=== PATIENT | female | born 1975 | race Caucasian/White ===

== ENCOUNTER 2024-09-29 14:14 | Outpatient (CLI) | payer BC, SELFPAY ==
--- NOTE | ~2024-09-29 | CT_ITS ---
CLINICAL INDICATION: Preoperative evaluation for ventral hernia repair COMPARISON: None. TECHNIQUE: Multiple contiguous axial images of the abdomen and pelvis were performed without the admi nistration of intravenous contrast The dose-length product (DLP) was 309.94 mGy-cm. Automated exposure control and iterative reconstruction technique were employed. FINDINGS/OBSERVATIONS: Visualized lower thorax: The bilateral lung bases are clear. The heart is of normal size, without pericardial effusion. Liver: A 17 mm well-circumscribed rounded focus of fluid attenuation is identified within segment 3 o f the liver, most consistent with a simple cyst. The remainder of the liver demonstrates otherwise homogeneous attenuation and is not enlarged. Gallbladder and biliary system: The gallbladder is only minimally distended, and otherwise unremarkable. Pancreas: Limited evaluation of the pancreas secondary to the lack of intravenous contrast. Spleen: The spleen demonstrates homogeneous attenuation and is not enlarged. Kidneys: The bilateral kidneys are unremarkable, without hydronephrosis or renal calculi. Adrenal glands: Unremarkable. Gastrointestinal tract: Trace fecal stasis within the colon. Appendix: The air-filled appendix is of normal caliber (axial series, images 95 through 118). Vasculature: Unremarkable. Lymph nodes: Limited evaluation without intravenous contrast. Pelvic structures: The bladder is decompressed, demonstrating markedly thickened gary, likely secondary to underdistent ion. The uterus is retroverted and retroflexed, and otherwise unremarkable. Body wall and musculoskeletal: Approximately 4 cm above the umbilicus is an 8 mm fascial defect and a fat-containing supraumbilical hernia. A small, multilobulated umbilical hernia is also present. No inguinal hernias are present. No significant degenerative disease within the lower thoracic or lumbosacral spine. IMPRESSION: Umbilical and supraumbilical hernia, as detailed above. Reviewed, dictated and finalized at location A.
--- OUTSIDE RECORDS SUMMARY | 2024-09-29 15:40 | XMS_ITS | Clinical Summary ---
Author Organization [facility] Address [address] [place] [address] Care Team Providers Care Siding Coreboard Inspector Name Role Phone Jose Russell MD Primary Care Provider [phone]- [phone] Allergies No known active allergies Medications montelukast (SINGULAIR) 10 mg tablet Take 1 tablet (10 mg total) by mouth daily 03/07/2024 Active Active Problems No known active problems Encounters Date Type Department Care Team Description 07/13/2024 8:45 AM GALLEY BOY Office Visit [facility] Orthopedics and Sports Medicine [address] [place] [phone] Chinyere Yoon PA Closed displaced fracture of fifth metatarsal bone of right foot with routine healing, subsequent encounter (Primary Dx) 07/13/2024 8:24 AM GALLEY BOY - 07/13/2024 11:59 PM GALLEY BOY Hospital Encounter [facility] [address] [place] [id number] Closed displaced fracture of fifth metatarsal bone of right foot with delayed healing, subsequent encounter Discharge Disposition: Discharge to home or self care from Last 3 Months Immunizations Immunization Administration Dates Next Due Flucelvax Influenza Quad 05/08/2019 Influenza, Trivalent, IM (MDV) 04/14/2015 Social History Tobacco Use Types Packs/Day Years Used Date Smoking Tobacco: Never Tobacco Cessation:Counseling Given: Not Answered Comments Unknown Sex and Gender Information Value Date Recorded Sex Assigned at Not on file Legal Sex Female 8:03 AM GALLEY BOY Gender Identity Not on file Sexual Orientation Not on file Obstetrics History Last Filed Vital Signs Vital Sign Reading Time Taken Comments Blood Pressure - - Pulse - - Temperature - - Respiratory Rate - - Oxygen Saturation - - Inhaled Oxygen Concentration - - Weight 68 kg (150 lb) 07/13/2024 8:32 AM GALLEY BOY Height 170.2 cm (5' 7 ) 07/13/2024 8:32 AM GALLEY BOY Body Mass Index 23.49 07/13/2024 8:32 AM GALLEY BOY Plan of Treatment Health Maintenance Due Date Last Done Comments Cervical Cancer Screening 1977 Colon Cancer Screening-Colonoscopy 1977 Depression Screening 1977 Hepatitis C Screening 1977 DTaP/Tdap/Td Vaccine (1 - Tdap) 1988 Hepatitis B Screening 09/11/1995 Regular Well Visit/Exam 18-64 09/11/1995 Covid-19 Vaccine ( season) 2024 08/05/2020, 07/15/2020 Influenza Vaccine (#1) 2024 05/08/2019, 2014 Breast Cancer Screening-Mammogram 10/22/2024 10/23/2023, 09/17/2022, 05/22/2021, Additional history exists HPV Vaccines Aged Out No longer eligi ble based on patient's age to complete this topic Pneumococcal vaccine <65 Aged Out No longer eligible based on patient's age to complete this topic Procedures Procedure Name Priority Date/Time Associated Diagnosis Comments XR FOOT RIGHT 3 OR MORE VIEWS Schedule Routine, Read Routine (OP Routine) 07/13/2024 8:33 AM GALLEY BOY Closed displaced fracture of fifth metatarsal bone of right foot with delayed healing, subsequent encounter SCREENING MAMMOGRAM BILATERAL W DIMITRIOS Schedule Routine, Read Routine (OP Routine) 10/23/2023 12:39 PM CDT Screening mammogram, encounter for from Last 3 Months or Most Recently Relevant to Health Maintenance Results * XR Foot Right 3 or More Views (07/13/2024 8:33 AM GALLEY BOY) Anatomical Region Laterality Modality Lower Extremities, Foot Right Computed Radiography 07/13/2024 9:57 AM GALLEY BOY Narrative 07/13/2024 9:59 AM GALLEY BOY EXAM DESCRIPTION: XR FOOT RIGHT 3 OR MORE VIEWS REASON FOR STUDY: FX Lateral foot pain since injury/fx 01-14-24 TECHNIQUE: 3 radiographic view(s) of the right foot . COMPARISON: 04/06/2024 FINDINGS: There is mild osteopenia. There is redemonstration of the right 5th metatarsal with grossly stable alignment with interval complete healing changes. No new fractures or dislocations are identified. There are mild degenerative changes of the tarsal tarsal, tarsometatarsal, metatarsophalangeal, and interphalangeal joints. The visualized soft tissues are acutely grossly unremarkable. IMPRESSION: Grossly stable alignment of previously visualized right 5th metatarsal fracture with interval complete healing changes. THIS IS AN ELECTRONICALLY VERIFIED FINAL REPORT 07/13/2024 9:59 AM - Electronically signed by Viky Land D.O. PS T: Report ID: [id number] Reading Location: [id number] Procedure Note Viky Land, - 07/13/2024 EXAM DESCRIPTION: XR FOOT RIGHT 3 OR MORE VIEWS REASON FOR STUDY: FX Lateral foot pain since injury/fx 01-14-24 TECHNIQUE: 3 radiographic view(s) of the right foot . COMPARISON: 04/06/2024 FINDINGS: There is mild osteopenia. There is redemonstration of the [id number] metatarsal with grossly stable alignment with interval complete healing changes. No new fractures or dislocations are identified. There are mild degenerative changes of the tarsal tarsal, tarsometatarsal, metatarsophalangeal, and interphalangeal joints. The visualized softtissues are acutely grossly unremarkable. IMPRESSION: Grossly stable alignment of previously visualized right 5th metatarsal fracture with interval complete healing changes. THIS IS AN ELECTRONICALLY VERIFIED FINAL REPORT 07/13/2024 9:59 AM - Electronically signed by Viky Land D.O. PS T: Report ID: [id number] Reading Location: [id number] [facility] XR PROCEDURES Final Re sult * Screening Mammogram Bilateral W Dimitrios (10/23/2023 12:39 PM CDT) Anatomical Region Laterality Modality Breast Bilateral Mammography Narrative 10/24/2023 10:42 AM CDT Mammogram Technique: Bilateral Digital Breast Tomosynthesis, Bilateral C-view 2D Screening mammogram. Views obtained: bilateral craniocaudal and bilateral mediolateral oblique. Computer Aided Detection was performed. Mammogram Findings: The present examination has been compared to prior imaging studies performed at [facility] on 03/24/2020, 05/22/2021 and 09/17/2022. The breasts are heterogeneously dense, which may obscure small masses. There is no suspicious abnormality in either breast. Impression: There is no mammographic evidence of malignancy. Annual screening mammography is recommended. If supplemental screening is desired, breast MRI would be recommended in this patient with heterogeneously dense breasts. OVERALL FINAL ASSESSMENT: BI-RADS CATEGORY 1: Negative. Procedure Note Mary Robb MD - 10/24/2023 Mammogram Technique: Bilateral Digital Breast Tomosynthesis, Bilateral C-view 2D Screening mammogram. Views obtained: bilateral craniocaudal and bilateral mediolateral oblique. Computer Aided Detection was performed. Mammogram Findings: The present examination has been compared to prior imaging studies performed at [facility] on 03/24/2020, 05/22/2021 and 09/17/2022. The breasts are heterogeneously dense, which may obscure small masses. There is no suspicious abnormality in either breast. Impression: There is no mammographic evidence of malignancy. Annual screening mammography is recommended. If supplemental screeningis desired, breast MRI would be recommended in this patient with heterogeneously dense breasts. OVERALL FINAL ASSESSMENT: BI-RADS CATEGORY 1: Negative. us Self Screening Mammogram IMG MAMMO PROCEDURES Fi nal Result from Last 3 Months or Most Recently Relevant to Health Maintenance Insurance ANTHEM ACCESS CHOICE ANTHEM ACCESS BLUE ACCESS [place] [facility] Care Teams Siding Coreboard Inspector Relationship Specialty Start Date End Date Jose Russell MD [address] [facility] [address] [place], [place] [id number] PCP - General 10/25/16
--- OUTSIDE RECORDS SUMMARY | 2024-09-29 15:40 | XMS_ITS | Clinical Summary ---
Author Organization [facility] Address [address] [place] [address] Care Team Providers Care Head Start Assistant Teacher Name Role Phone Unavailable Primary Care Provider Unavailabl e Source Comments [facility],non-owned Affiliates and Associated Physician Practices is amultiple site organization consisting of ambulatory clinics and hospital sitesin [place], [place], [place] and [place]. This disclosure is being madepursuant to the Care Everywhere program and may not contain all information available regarding this patient. Last updated 18.[facility] Immunizations Name Administration Dates Next Due Covid Pfizer primary monoval ent 12+ yr 0.3mL Purple cap 08/05/2020,07/15/2020 Social History Tobacco Use Types Packs/Day Years Used Date Smoking Tobacco: Never Assessed Sex and Gender Information Value Date Recorded Sex Assigned at Not on file Gender Identity Not on file Sexual Orientation Not on file Plan of Treatment Health Maintenance Due Date Last Done Comments COLOGUARD (AGES 45-75) - COL ON CA SCREENING 1977 COLON MONITORING 1977 COLONOSCOPY - COLON CA SCREENING 1977 CT COLONOGRAPHY - COLON CA SCREENING 1977 Colorectal Cancer Screening 1977 FIT - COLON CA SCREENING 1977 FLEX SIG - COLON CA SCREENING 1977 LIPID TESTING 1977 PAP SMEAR 1977 HIV SCREENING 1992 HEPATITIS C SCREENING 09/06/1995 DTAP/TDAP/TD VACCINES (1 - Tdap) 1996 HEPATITIS B VACCINE (1 of 3 - 19+ 3-dose series) 1996 MAMMOGRAM 03/24/2022 03/24/2020 COVID-19 VACCINE (2023-2 5 season) 2024 08/05/2020, 07/15/2020 INFLUENZA VACCINE (#1) 2024 DEPRESSION SCREENING 07/01/2024 ZOSTER VACCINE (1 of 2) 09/11/2027 HIB VACCINE Aged Out No longer eligi ble based on patient's age to complete this topic HPV VACCINE Aged Out No longer eligi ble based on patient's age to complete this topic MENINGOCOCCAL (Group B) VACCINE SHARED DECISION-MAKING Aged Out No longer eligible based on patient's age to complete this topic MENINGOCOCCAL GROUPS A/C/Y/W VACCINE Aged Out No longer eligible b ased on patient's age to complete this topic PNEUMOCOCCAL VACCINE Aged Out No long er eligible based on patient's age to complete this topic
--- OUTSIDE RECORDS SUMMARY | 2024-09-29 15:40 | XMS_ITS | Referral Summary ---
Author Organization [facility] Address [address] [place] [address] Care Team Providers Care Security System Engineer Name Role Phone Jose Russell MD Primary Care Provider +1- [phone] Encounters Date Type Department Care Team Description 07/13/2024 8:24 AM BRADLEY LINEBACKER CREWMEMBER - 07/13/2024 11:59 PM BRADLEY LINEBACKER CREWMEMBER Hospital Encounter [facility] Diag Imaging [address] [place] [phone] Closed displaced fracture of fifth metatarsal bone of right foot with delayed healing, subsequent encounter Discharge Disposition: Discharge to home or self care 07/13/2024 8:45 AM BRADLEY LINEBACKER CREWMEMBER Office Visit [facility] Orthopedics and Sports Medicine [address] [place] [address] [place] [phone] Chinyere Yoon PA Closed displaced fracture of fifth metatarsal bone of right foot with routine healing, subsequent encounter (Primary Dx) from Last 3 Months Allergies No known active allergies Medications montelukast (SINGULAIR) 10 mg tablet Take 1 tablet (10 mg total) by mouth daily 03/07/2024 Active Active Problems No known active problems Immunizations Immunization Administration Dates Next Due Flucelvax Influenza Quad 05/08/2019 Influenza, Trivalent, IM (MDV) 04/14/2015 Social History Tobacco Use Types Packs/Day Years Used Date Smoking Tobacco: Never Tobacco Cessation:Counseling Given: Not Answered Comments Unknown Sex and Gender Information Value Date Recorded Sex Assigned at Not on file Legal Sex Female 8:03 AM BRADLEY LINEBACKER CREWMEMBER Gender Identity Not on file Sexual Orientation Not on file Last Filed Vital Signs Vital Sign Reading Time Taken Comments Blood Pressure - - Pulse - - Temperature - - Respiratory Rate - - Oxygen Saturation - - Inhaled Oxygen Concentration - - Weight 68 kg (150 lb) 07/13/2024 8:32 AM BRADLEY LINEBACKER CREWMEMBER Height 170.2 cm (5' 7 ) 07/13/2024 8:32 AM BRADLEY LINEBACKER CREWMEMBER Body Mass Index 23.49 07/13/2024 8:32 AM BRADLEY LINEBACKER CREWMEMBER Plan of Treatment Not on file Procedures Procedure Name Priority Date/Time Associated Diagnosis Comments XR FOOT RIGHT 3 OR MORE VIEWS Schedule Routine, Read Routine (OP Routine) 07/13/2024 8:33 AM BRADLEY LINEBACKER CREWMEMBER Closed displaced fracture of fifth metatarsal bone of right foot with delayed healing, subsequent encounter SCREENING MAMMOGRAM BILATERAL W DIMITRIOS Schedule Routine, Read Routine (OP Routine) 10/23/2023 12:39 PM CDT Screening mammogram, encounter for from Last 3 Months or Most Recently Relevant to Health Maintenance Results * XR Foot Right 3 or More Views (07/13/2024 8:33 AM BRADLEY LINEBACKER CREWMEMBER) Anatomical Region Laterality Modality Lower Extremities, Foot Right Computed Radiography 07/13/2024 9:57 AM BRADLEY LINEBACKER CREWMEMBER Narrative 07/13/2024 9:59 AM BRADLEY LINEBACKER CREWMEMBER EXAM DESCRIPTION: XR FOOT RIGHT 3 OR [...] Viky Land D.O. PS T: Report ID: [id number] Reading Location: [id number] Procedure Note Viky Land, DO - 07/13/2024 EXAM DESCRIPTION: XR FOOT RIGHT 3 OR MORE VIEWS REASON FOR STUDY: FX Lateral foot pain since injury/fx 01-14-24 TECHNIQUE: 3 radiographic view(s) of the right foot . COMPARISON: 04/06/2024 FINDINGS: There is mild osteopenia. There is redemonstration of the [id number] metatarsal with grossly stable alignment with interval [...] Viky Land D.O. PS T: Report ID: [id number] Reading Location: [id number] [facility] XR PROCEDURES Final Re [...] compared to prior imaging studies performed at [facility] on 03/24/2020, 05/22/2021 and 09/17/2022. The [...] compared to prior imaging studies performed at [facility] on 03/24/2020, 05/22/2021 and 09/17/2022. The [...] Most Recently Relevant to Health Maintenance Insurance [employer] CHOICE [employer] ACCESS BLUE ACCESS [place] Care Teams Security System Engineer Relationship Specialty Start Date End Date Jose Russell MD [address] [facility] [facility] [address] [place] [address] PCP - General 10/25/16
--- OUTSIDE RECORDS SUMMARY | 2024-09-29 15:40 | XMS_ITS | Data Portability ---
Author Organization [facility], [facility]) Address [address] [place] [address] Care Team Providers Care Pilot Steam Yacht Name Role Phone LUCILA MAHAJAN Primary Care Provider [phone] Assessment Encounter Date Assessment Date Assessment LastModified by Organization Details LastModified Time 08/21/2021 08/21/2021 45 y/o with chronic venous insufficiency and CEAP grade 3 on the right and 3 on the left. VCSS score is 10. I am concerned that the symptoms may progress over time. Patients symptoms persist despite a trial of properly fitted gradient compression stockings f or10 y ears. Patient has also tried mild exercise, avoidance of prolonged immobility and periodic elevation of legs f or10 y ears. H owever, the symptoms still persist. Given the symptoms, I recommend lower extremity venous ultrasound I will discuss further treatment plans upon reviewing her ultrasound results. I spent a total of 45 minutes with the patient. The time was spent reviewing the chart discussing with patient and/or family and forming a treatment plan [email or web address] Not available 08/21/2021 13:10:00 Plan of Treatment Reminders Order Date Submit Date Provider Last Modified By Organization Details Last Modified Time Details Appointments None record ed. Lab None record ed. Referral None record ed. Procedures None record ed. Surgeries None record ed. Imaging None record ed. Medication Orders None record ed. Patient TargetsNo targets recorded. Patient InstructionsNo instructions recorded. Reason for Referral None Reported. Problems No Known Problems Medical Equipment None Reported. Allergies No known drug allergies Medications Not known to be on any medication Vitals None Recorded Social History Question Answer Notes LastModified by Organizat ion Details LastModified Time What Was The Date Of Your Most Recent Tobacco Screening? 08/21/2021 [id number] Information not available 08/21/2021 Sex: Unknown Functional Status None recorded. Mental Status None recorded. Family History Nothing Reported. Medical History Condition Response Coronary Artery Disease N COPD N Clotting Disorder N Pacemaker N Genitourinary Disease N Gastrointestinal Disease N Deep Vein Thrombosis N Anxiety Disorder N Varicose Veins Y Cancer N Stroke N Neurologic Disorder N Kidney Disease N Anemia N Ulcers N Diabetes N Anticoagulation therapy N Bleeding Disorder N Hyperlipidemia N Asthma N Hepatitis N Heart Disease N Pulmonary Embolism N Hypertension N Gynecological HistoryNo gynecological history recorded. Obstetrics History GPAL:G 0 P 0 0 0 0 Past Encounters Encounter ID Performer Location Encounter Start Date Encounter Closed Date Diagnosis/Indication Diagnosis SNOMED-CT Code Diagnosis ICD10 Code Diagnosis Note [id number] [facility] [address] [facility] [facility] [address],[facility] [address] ( [place] [address] 08/21/2021 11:54:33 08/22/2021 09:02:10 Varicose veins of lower extremity 75661252 I83.893 Primary ve nous insufficiency of leg 311911079 I87.2 Health Concerns Section Related Observation LastModified by Organization Detai ls LastModified Time None Recorded Concern Status LastModified by Organization Details LastModified Time None Recorded Advance Directives Directive None Recorded Payers Encounter Date Sequence Insurance Name Policy Number Policy Gage Covered Member ID Gage Member ID Guarantor Name 08/21/2021 1 [place] [id number] Malik Monreal [id number] Ginny Monreal Notes Date Note Type Note Provider Name and Address Organization Details Recorded Time 2 text/html Varicose Vein or Venous insufficiencyReported bypatient.Location:[facility]; only has symptoms on the left leg, but she has a prior history of bulging veins on the right (treated with sclero) Quality:aching;burning;thr obbing; worsening; legs do not swell equally; left worse than right Associated Symptoms:swelling;redness; itching;heaviness;throbbin g; She has tenderness over the bulging vessels in the right leg (from her thigh to her calf) Severity:moderate;constant Onset:gradual onset; 15 years Context:previous ; compression stockings (for how long?) 9 years Alleviating Factors:nothing gives relief; rest Aggravating Factors:weight bearing; previous childbirth; edema; prolonged standing Previous Surgery:sclerotherapy, [id number]; She has been getting sclerotheraphy for over 15 years, but the bulging vessels in her leg have returned and worsened. They are tender and her and painful, especially while weight bearing. Prior Imaging:none As related to {{his her*}} venous disease, patient reports {{burning aching swelling itching cramping burning, aching, itching, cramping#}} {{and burning and aching and swelling* and itching and cramping}} { {during activity after prolonged standing during activity and prolonged standing*}}.Patient {{endorses* denies}} prior use of compression stockings.{{Patients symptoms persist despite a trial of properly fitted gradient compression stockings*}}for {{1 2 3 4 5 6 7 8 9* 10 11 12}} { {months weeks years* month week year}}{{Patient has also tried mild exercise, avoidance of prolonged immobility and periodic elevation of legs*}} f or{{1 2 3 4 5 6 7 8 9* 10 11}} { {month months week weeks y ear years* month months we ek weeks year years*}}. { {However, the symptoms still persist.*}} {{Analgesic medication has been tried, but the symptoms persist and are lifestyle limiting*}}Patients work requires {{prolonged standing prolonged sitting constant activity*}} which has to be modified because of persistent {{pain swelling discomfort pain and discomfort#}} while {{standing sitting in motion performing various work activities*}} [facility] 08/21/2021 13:10:58 OBGyn Episode No OBEpisode recorded.
== END 2024-09-29 14:15 | disposition home or self-care (01) ==
PROVIDERS: PCP Internal Medicine; Visit Provider Surgery
DX: K43.6 Other and unspecified ventral hernia with obstruction, without gangrene (principal); R10.11 Right upper quadrant pain; K42.9 Umbilical hernia without obstruction or gangrene
CPT/HCPCS: 74176

== ENCOUNTER 2024-10-07 07:43 | Outpatient (CLI) | payer BC, SELFPAY ==
--- NOTE | ~2024-10-07 | US_ITS ---
US abdomen limited INDICATION: Right upper quadrant pain PROCEDURE: Realtime right upper abdominal ultrasound. COMPARISON: No prior studies for comparison. FINDINGS: The pancreas is normal without focal mass or pancreatic ductal dilation. There is a septat ed 2.2 cm cyst of the left hepatic lobe. There is normal directional flow in the portal vein. The gallbladder is normal without stones, gallbladder wall thickening or pericholecystic fluid. Comm on bile duct measures 9 mm. No sonographic Sheets's sign. IMPRESSION: 1: Mildly dilated common bile duct measuring 9 mm. No obstructing stone or mass identified. Consider correlation with MRCP. 2: Septated 2.2 cm liver cyst in the left hepatic lobe. Reviewed, dictated and finalized at location A.
== END 2024-10-07 07:44 | disposition home or self-care (01) ==
LOC: MICIMG 07:44
PROVIDERS: PCP Internal Medicine; Visit Provider Surgery
DX: R10.11 Right upper quadrant pain (principal); K76.89 Other specified diseases of liver
CPT/HCPCS: 76705

== ENCOUNTER 2024-10-13 01:38 | Day surgery (SDC) | payer BC, SELFPAY ==
[2024-10-02 15:47] VITALS: BMI 22.7
--- OUTSIDE RECORDS SUMMARY | 2024-10-13 01:40 | XMS_ITS | Referral Summary ---
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 Gender Identity Not on file Sexual Orientation Not on file Last Filed Vital Signs Vital Sign Reading Time Taken Comments Blood Pressure - - Pulse - - Temperature - - Respiratory Rate - - Oxygen Saturation - - Inhaled Oxygen Concentration - - Weight 68 kg (150 lb) 07/13/2024 8:32 AM FINISH SPECIALIST Height 170.2 cm (5' 7 ) 07/13/2024 8:32 AM FINISH SPECIALIST Body Mass Index 23.49 07/13/2024 8:32 AM FINISH SPECIALIST Plan of Treatment Not on file Procedures Procedure Name Priority Date/Time Associated Diagnosis Comments SCREENING MAMMOGRAM BILATERAL W DIMITRIOS Schedule Routine, Read Routine (OP Routine) 10/23/2023 12:39 PM CDT Screening mammogram, encounter for from Last 3 Months or Most Recently Relevant to Health Maintenance Results * Screening Mammogram Bilateral W Dimitrios (10/23/2023 12:39 PM CDT) Anatomical Region Laterality Modality Breast Bilateral Mammography Narrative 10/24/2023 10:42 AM CDT Mammogram Technique: Bilateral Digital Breast Tomosynthesis, Bilateral C-view 2D Screening mammogram. Views obtained: bilateral craniocaudal and bilateral mediolateral oblique. Computer Aided Detection was performed. Mammogram Findings: The present examination has been compared to prior imaging studies performed at [facility] on 03/24/2020, 05/22/2021 and 09/17/2022. The [...] compared to prior imaging studies performed at [facility] on 03/24/2020, 05/22/2021 and 09/17/2022. The [...] ACCESS BLUE ACCESS [place] BL[place] ACC[place] [facility] Care Teams Credit Risk Review Officer Relationship Specialty Start Date End Date Jose Russell MD [address] [facility] [address] [place] [address] PCP - General 10/25/16
--- OUTSIDE RECORDS SUMMARY | 2024-10-13 01:40 | XMS_ITS | Clinical Summary ---
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 Gender Identity Not on file Sexual Orientation Not on file Obstetrics History Last Filed Vital Signs Vital Sign Reading Time Taken Comments Blood Pressure - - Pulse - - Temperature - - Respiratory Rate - - Oxygen Saturation - - Inhaled Oxygen Concentration - - Weight 68 kg (150 lb) 07/13/2024 8:32 AM TRAFFIC OR SYSTEM DISPATCHER Height 170.2 cm (5' 7 ) 07/13/2024 8:32 AM TRAFFIC OR SYSTEM DISPATCHER Body Mass Index 23.49 07/13/2024 8:32 AM TRAFFIC OR SYSTEM DISPATCHER Plan of Treatment Health Maintenance Due Date Last Done Comments Cervical Cancer Screening 1977 Colon Cancer Screening-Colonoscopy 1977 Depression Screening 1977 Hepatitis C Screening 1977 DTaP/Tdap/Td Vaccine (1 - Tdap) 1988 Hepatitis B Screening 09/11/1995 Regular Well Visit/Exam 18-64 09/11/1995 Covid-19 Vaccine ( season) 2024 08/05/2020, 07/15/2020 Breast Cancer Screening-Mammogram 10/22/2024 10/23/2023, 09/17/2022, 05/22/2021, Additional history exists Influenza Vaccine (Season Ended) 2025 05/08/2019, 04/14/2015 Pneumococcal vaccine <65 Aged Out No longer [...] compared to prior imaging studies performed at [facility] on 03/24/2020, 05/22/2021 and 09/17/2022. The [...] compared to prior imaging studies performed at [facility] on 03/24/2020, 05/22/2021 and 09/17/2022. The [...] Most Recently Relevant to Health Maintenance Insurance [employer] ACCESS CHOICE [employer] ACCESS [employer] [place] Care Teams Shredding Machine Operator Relationship Specialty Start Date End Date Jose Russell MD [address] [facility] [address] [place] [address] PCP - General 10/25/16
--- OUTSIDE RECORDS SUMMARY | 2024-10-13 01:40 | XMS_ITS | Data Portability ---
Author Organization [facility], [facility]) Address [address] [place] [address] Care Team Providers Care Capsule Maker Name Role Phone LUCILA MAHAJAN Primary Care Provider Assessment Encounter Date Assessment Date Assessment LastModified by Organization Details LastModified Time 08/21/2021 08/21/2021 45 y/o with chronic venous insufficiency and CEAP grade 3 on the right and 3 on the left. VCSS score is 10. I am concerned that the symptoms may progress over time. Patients symptoms persist despite a trial of properly fitted gradient compression stockings for10 years. Patient has also tried mild exercise, avoidance of prolonged immobility and periodic elevation of legs for10 years. However, the symptoms still persist. Given the symptoms, [...] Of Your Most Recent Tobacco Screening? 08/21/2021 yvrose Information not available 08/21/2021 Sex: Unknown Functional Status None recorded. Mental Status None recorded. Family History Nothing Reported. Medical History Condition Response Coronary Artery Disease N COPD N Clotting Disorder N Pacemaker N Anemia N Genitourinary Disease N Ulcers N Gastrointestinal Disease N Deep Vein Thrombosis N Diabetes N Varicose Veins Y Anxiety Disorder N Anticoagulation therapy N Bleeding Disorder N Hyperlipidemia N Cancer N Stroke N Asthma N Neurologic Disorder N Hepatitis N Heart Disease N Pulmonary Embolism N Hypertension N Kidney Disease N Gynecological HistoryNo gynecological history recorded. Obstetrics History GPAL:G 0 P 0 0 0 0 Past Encounters Encounter ID Performer Location Encounter Start Date Encounter Closed Date Diagnosis/Indication Diagnosis SNOMED-CT Code Diagnosis ICD10 Code Diagnosis Note [id number] [facility] [address] [facility], [facility] ,[facility] [place] [address] 08/21/2021 11:54:33 08/22/2021 09:02:10 Varicose veins of lower extremity 03761920 I83.893 Primary ve nous insufficiency of leg 348735788 I87.2 Health Concerns Section Related Observation LastModified by Organization Detai ls LastModified Time None Recorded Concern Status LastModified by Organization Details LastModified Time None Recorded Advance Directives Directive None Recorded Payers Encounter Date Sequence Insurance Name Policy Number Policy Gage Covered Member ID Gage Member ID Guarantor Name 08/21/2021 1 [place] [id number] Malik Monreal [id number] Ginny Monreal Notes Date Note Type Note Provider Name and Address Organization Details Recorded Time 2 text/html Varicose Vein or Venous insufficiencyReported bypatient.Location:[facility]; only has symptoms on the left [...] previous childbirth; edema; prolonged standing Previous Surgery:sclerotherapy, [id number]; She has been getting sclerotheraphy for over 15 years, but the bulging vessels in her leg have returned and worsened. They are tender and her and painful, especially while weight bearing. Prior Imaging:none As related to {{his her*}} venous disease, patient reports {{burning aching swelling itching cramping burning, aching, itching, cramping#}} {{and burning and aching and swelling* and itching and cramping}} {{during activity after prolonged standing during activity and prolonged standing*}}.Patient {{endorses* denies}} prior use of compression stockings.{{Patients symptoms persist despite a trial of properly fitted gradient compression stockings*}}for {{1 2 3 4 5 6 7 8 9* 10 11 12}} {{months weeks years* duglas h week year}}{{Patient has also tried mild exercise, avoidance of prolonged immobility and periodic elevation of legs*}} for{{1 2 3 4 5 6 7 8 9* 10 11}} {{month months week weeks year years* month months w [place] weeks year years*}}. {{However, the symptoms still persist.*}} {{Analgesic medication has been tried, but the symptoms persist and are lifestyle limiting*}}Patients work requires {{prolonged standing prolonged sitting constant activity*}} which has to be modified because of persistent {{pain swelling discomfort pain and discomfort#}} while {{standing sitting in motion performing various work activities*}} Hiral tripathi, [facility] 08/21/2021 13:10:58 OBGyn Episode No OBEpisode recorded.
--- OUTSIDE RECORDS SUMMARY | 2024-10-13 01:40 | XMS_ITS | Clinical Summary ---
Author Organization [facility] Address [address] [place] [address] Care Team Providers Care Sustainability Coach Name Role Phone Unavailable Primary Care Provider Unavailabl e Source Comments [facility],non-owned Affiliates and Associated Physician Practices is amultiple site organization consisting of ambulatory clinics and hospital sitesin [place], [place], [place] and [place]. This disclosure is being madepursuant to the Care Everywhere program and may not contain all information available regarding this patient. Last updated 18.[facility] [employer] 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
[2024-10-13 08:42] VITALS: BP 171/100; PULSE 68; RESP 18; TEMP 36.8; O2SAT 100
[2024-10-13] MEDS: LACTATED RINGERS 1,000 ML 150 ML IV CONT (08:52)
--- NOTE | 2024-10-13 09:03 | P.PNAN_ITS ---
Anes - Initial Pre Proc Eval Procedure: Operation Date: 10/13/24 09:30 Proposed Procedures p Screening Colonoscopy - Casey Garcia DO Date/Time: 10/13/24 09:03 Surgeon: Casey Garcia DO Pre Op Diagnosis: Screening for malignant neoplasm of colon Patient Data Age: 49 Gender: F Height: 1.7 m Weight: 65.5 kg Last Vital Signs Temp 36.8 C 10/13/24 08:42 Pulse 68 10/13/24 08:42 Resp 18 10/13/24 08:42 BP 171/100 H 10/13/24 08:42 Pulse Ox 100 10/13/24 08:42 O2 Del Method Room Air 10/13/24 08:42 Allergies Allergy/AdvReac Type Severity Reaction Status Date / Time succinylcholine Allergy Mild COMA Verified 10/13/24 08:40 PSEUDOCHOLINESTERASE Allergy Unknown Unknown Uncoded 10/13/24 08:40 DEFICIENCY-CONFIRMED BY TESTING Home Medications ?Medication ?Instructions ?Recorded ?Confirmed ?Type fluticasone propionate 50 2 spray intranasal DAILY 11/02/19 10/13/24 History mcg/actuation nasal spray,suspension (Flonase Allergy Relief) montelukast 10 mg tablet See Rx Instructions .Route 09/21/24 10/13/24 Rx .COMPLEX #90 tabs Patient hx anesthesia problems: pseudocholinesterase deficiency Family hx anesthesia problems: pseudocholinesterase deficiency Results Review: All pre-operative results and documents have been reviewed as part of the pre- operative evaluation. [facility] Past Medical History Medical History Allergies Screening mammogram, encounter for Surgical History Surgical History S/P ligament repair left hand surgery reattached ligament H/O LEEP (~1997) History of colposcopy (~1997) colp/bx - hpv positive History of colposcopy (06/11/16) colpo/bx- ascus+hpv - benign History of partial hysterectomy (07/23/19) RATLH with ovarian preservation ; Menometrorrhagia, Dysmenorrhea Status post left foot surgery Family History Family History Mother Breast cancer Grandparent Breast cancer Maternal grandmother Sibling Breast cancer sister Social History Social History Smoking packs per day: 0.5 Smoking cigarettes per day: 10.0 Years smoked: 8 Smoking pack-years: 4.00 Smoking status: Former smoker Tobacco type: cigarettes Second hand tobacco smoke exposure: Yes Smoking end date: 07/01/10 Alcohol intake: current Drinks per week: 10 Substance use: never Substance use type: does not use Do You Feel Safe in your Home?: Yes Lack of Transportation: No Lack of Food: Never True Current Housing: I Have Housing Concerned About Future Housing: No Difficulty Paying Gas/Electric Bills: No Difficulty Paying for Meds: No Currently Unemployed: No Education: Don't Know Difficulty w/ Childcare or Family Care: No Living arrangements: with family Additional living arrangements comments: 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/Education: 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 Gender identity (if verbalized by the patient): Female Sexual Orientation (if Verbalized by the Patient): Straight or Heterosexual Spiritual care concerns: No Anes - Eval Final PreProcedure Day of Procedure 10/13/24 09:03 Patient weight: normal Heart: regular rate and rhythm Lungs: clear to auscultation Airway: Mallampati scale class II Neurological: alert and oriented Last oral intake: >/= 8 hours ASA classification: II Emergent: no Anesthetic plan: proceed Anesthesia type and monitoring: general GIVS and standard monitoring Results Review: All pre-operative results and documents have been reviewed as part of the pre- operative evaluation. Informed Consent: The patient's anesthetic plan and its attendant risks and benefits were discussed with the patient/family/POA. Questions were solicited and answers provided to the satisfaction of the patient/family/POA.
--- NOTE | 2024-10-13 09:19 | PM.IMHP ---
H&P: HPI History of Present Illness Date/Time: 10/13/24 09:19 Chief Complaint: screening for colorectal cancer Narrative: this is a 49-year-old woman who presents for her 1st colonoscopy. She denies any hematochezia or melena. She denies any family history of colon cancer. Review of Systems Review of Systems: All systems reviewed & are unremarkable except as noted in HPI and below Constitutional: Constitutional: Denies chills, Denies fever(s), Denies headache(s) and Denies weight loss Eyes: Eyes: Denies change in vision ENT: Denies dizziness, Denies headache(s), Denies neck mass and Denies throat swelling Cardiovascular: Cardiovascular: Denies chest pain, Denies lightheadedness and Denies dyspnea Respiratory: Respiratory: Denies cough, Denies dyspnea and Denies wheezing Gastrointestinal: Gastrointestinal: Denies abdominal pain, Denies change in bowel habits, Denies nausea and Denies vomiting Genitourinary: Genitourinary: Denies hematuria and Denies dysuria Musculoskeletal: Musculoskeletal: Reports as per HPI Integumentary/Breasts: Skin/Breast: Reports as per HPI Neurologic: Denies dizziness and Denies headache(s) Allergic/Immunologic: Allergic/Immunologic: Denies throat swelling and Denies wheezing PMFSH Past Medical History Medical History Allergies Screening mammogram, encounter for Surgical History Surgical History S/P ligament repair left hand surgery reattached ligament H/O LEEP (~1997) History of colposcopy (~1997) colp/bx - hpv positive History of colposcopy (06/11/16) colpo/bx- ascus+hpv - benign History of partial hysterectomy (07/23/19) RATLH with ovarian preservation ; Menometrorrhagia, Dysmenorrhea Status post left foot surgery Family History Family History Mother Breast cancer Grandparent Breast cancer Maternal grandmother Sibling Breast cancer sister Social History Social History Smoking packs per day: 0.5 Smoking cigarettes per day: 10.0 Years smoked: 8 Smoking pack-years: 4.00 Smoking status: Former smoker Tobacco type: cigarettes Second hand tobacco smoke exposure: Yes Smoking end date: 07/01/10 Alcohol intake: current Drinks per week: 10 Substance use: never Substance use type: does not use Do You Feel Safe in your Home?: Yes Lack of Transportation: No Lack of Food: Never True Current Housing: I Have Housing Concerned About Future Housing: No Difficulty Paying Gas/Electric Bills: No Difficulty Paying for Meds: No Currently Unemployed: No Education: Don't Know Difficulty w/ Childcare or Family Care: No Living arrangements: with family Additional living arrangements comments: 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/Education: 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 Gender identity (if verbalized by the patient): Female Sexual Orientation (if Verbalized by the Patient): Straight or Heterosexual Spiritual care concerns: No Meds Home Medications and Allergies Home Medications ?Medication ?Instructions ?Recorded ?Confirmed ?Type fluticasone propionate 50 2 spray intranasal DAILY 11/02/19 10/13/24 History mcg/actuation nasal spray,suspension (Flonase Allergy Relief) montelukast 10 mg tablet See Rx Instructions .Route 09/21/24 10/13/24 Rx .COMPLEX #90 tabs Allergies Allergy/AdvReac Type Severity Reaction Status Date / Time succinylcholine Allergy Mild COMA Verified 10/13/24 08:40 PSEUDOCHOLINESTERASE Allergy Unknown Unknown Uncoded 10/13/24 08:40 DEFICIENCY-CONFIRMED BY TESTING Vital Signs Vital Signs - 24 hr 10/13/24 08:42 Temperature 98.3 F Pulse Rate 68 Respiratory Rate 18 Blood Pressure 171/100 H Pulse Oximetry 100 Oxygen Delivery Room Air Exam Const: General: no acute distress and alert Orientation/consciousness: patient oriented x3 HENMT: Head: normocephalic and atraumatic Ears: hearing grossly normal bilaterally Face/Nose/Sinus: Normal nares present Mouth: Yes Normal oral and palatal mucosa present Eyes: Periorbital: periorbital findings normal Sclera: sclerae normal EOM: EOMs intact bilaterally Neck: Neck: normal visual inspection, no lymphadenopathy and trachea midline Chest: Chest palpation & inspection: normal inspection of the chest Resp: Effort & Inspection: normal respiratory effort Auscultation: clear to auscultation bilaterally Cardio: Jugular venous distension: no JVD Rate: regular rate Rhythm: regular rhythm Heart sounds: S1 normal heart sound present and S2 normal heart sound present Peripheral pulses: Peripheral pulses 2+ throughout GI: Inspection: normal to inspection GI Palp: Yes Soft to palpation, No Tenderness to palpation present (GI), No Guarding due to palpation present (GI) and No Rebound tenderness present Percussion: Yes normal to percussion Auscultation: normal bowel sounds : General: Yes no CVA tenderness Back/Spine/Pelvis: Back: no CVA tenderness Neuro: General: patient oriented x3, no focal motor deficits and CN's II-XI intact bilaterally Cognition (Neuro): normal cognition Speech: normal speech Motor exam (neuro): 5/5 motor strength present throughout Extrem: General: capillary refill normal and no clubbing, cyanosis or edema Assessment and Plan Assessment and plan (1) Screening for colorectal cancer: Code(s): Z12.11 - Encounter for screening for malignant neoplasm of colon; Z12.12 - Encounter for screening for malignant neoplasm of rectum Status: Acute Assessment and Plan: I have recommended colonoscopy. I have discussed the procedure, risks, benefits, and alternatives. Questions were answered. Patient is agreeable to proceed.
[2024-10-13 09:39] VITALS: BP 125/57; PULSE 87; RESP 18; TEMP 36.8; O2SAT 100
[2024-10-13 09:49] VITALS: BP 139/94; BP 144/94; PULSE 55; PULSE 64; RESP 17; RESP 18; TEMP 36.8; O2SAT 100
== END 2024-10-13 10:20 | disposition home or self-care (01) ==
PROVIDERS: PCP Internal Medicine; Visit Provider Surgery
PROC: 0DJD8ZZ Inspection of Lower Intestinal Tract, Via Natural or Artificial Opening Endoscopic (ICD-10-PCS; CPT 45378; principal; 2024-10-13 09:30)
DX: Z12.11 Encounter for screening for malignant neoplasm of colon (principal); K57.30 Diverticulosis of large intestine without perforation or abscess without bleeding; Z98.890 Other specified postprocedural states; Z87.891 Personal history of nicotine dependence; Z80.3 Family history of malignant neoplasm of breast
CPT/HCPCS: 45378; J2704; J7120

== ENCOUNTER 2024-10-23 10:02 | Outpatient (CLI) | payer BC, SELFPAY ==
--- OUTSIDE RECORDS SUMMARY | 2024-10-23 10:22 | XMS_ITS | Clinical Summary ---
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 The breasts [...] compared to prior imaging studies performed at [facility] on 03/24/2020, 05/22/2021 and 09/17/2022. The breasts [...] Most Recently Relevant to Health Maintenance Insurance [employer] ACCESS CHOICE [employer] ACCESS [employer] O[place]UE [place]ESS [place] Member Subscriber Plan / Payer (Ef fective 2023-Present) Name:Ginny Monreal Member ID:[id number] Relation to Subscriber:Spouse Name:BRADLEY MONREAL Subscriber ID:[id number] Date of :1897 (Home) Address: [address] [place] [address] Payer ID:[id number] (NAIC) Type: OTHER Address: [address] [place] [address] [place]UE [place]ESS [place] Member Subscriber Plan / Payer (Ef fective 2023-Present) Name:Ginny Monreal Member ID:[id number] Relation to Subscriber:Spouse Name:BRADLEY MONREAL Subscriber ID:[id number] Date of :1897 Address: [address] [place] [address] Payer ID:[id number] (NAIC) Type: OTHER Address: [address] [place] [address] Care Teams Diabetes Physician Relationship Specialty Start Date End Date Jose Russell MD [address] [place] [address] PCP - General 10/25/16
--- OUTSIDE RECORDS SUMMARY | 2024-10-23 10:22 | XMS_ITS | Data Portability ---
Author Organization [facility] and, [facility]) Address [address] [place] [address] Care Team Providers Care Outside Industrial Sales Representative Name Role Phone LUCILA MAHAJAN Primary Care [...] History Nothing Reported. Medical History Condition Response Anxiety Disorder N Varicose Veins Y Anticoagulation therapy N Diabetes N Coronary Artery Disease N Bleeding Disorder N Hyperlipidemia N Cancer N Stroke N Asthma N COPD N Clotting Disorder N Pacemaker N Anemia N Neurologic Disorder N Hepatitis N Genitourinary Disease N Heart Disease N Ulcers N Gastrointestinal Disease N Pulmonary Embolism N Deep Vein Thrombosis N Hypertension N Kidney Disease N Gynecological HistoryNo gynecological history recorded. Obstetrics History GPAL:G 0 P 0 0 0 0 Past Encounters Encounter ID Performer Location Encounter Start Date Encounter Closed Date Diagnosis/Indication Diagnosis SNOMED-CT Code Diagnosis ICD10 Code Diagnosis Note [id number] [facility] [address] [facility] ( [place] [address] 08/21/2021 11:54:33 08/22/2021 09:02:10 Varicose veins of lower extremity 64322499 I83.893 Primary ve nous insufficiency of leg 836174936 I87.2 Health Concerns Section Related Observation LastModified by Organization Detai ls LastModified Time None Recorded Concern Status LastModified by Organization Details LastModified Time None Recorded Advance Directives Directive None Recorded Payers Encounter Date Sequence Insurance Name Policy Number Policy Gage Covered Member ID Gage Member ID Guarantor Name 08/21/2021 1 [place] [id number] Malik Monreal [id number] Ginny Monreal Notes Date Note Type [...] previous childbirth; edema; prolonged standing Previous Surgery:sclerotherapy, [id number]; She has been getting sclerotheraphy for over [...] week weeks year years* month months w [place] weeks year years*}}. {{However, the symptoms still persist.*}} {{Analgesic medication has been tried, but the symptoms persist and are lifestyle limiting*}}Patients work requires {{prolonged standing prolonged sitting constant activity*}} which has to be modified because of persistent {{pain swelling discomfort pain and discomfort#}} while {{standing sitting in motion performing various work activities*}} Hiral tripathi, [facility] and 08/21/2021 13:10:58 OBGyn Episode No OBEpisode recorded.
--- OUTSIDE RECORDS SUMMARY | 2024-10-23 10:22 | XMS_ITS | Clinical Summary ---
Author Organization [facility] Address [address] [place] [address] Care Team Providers Care Talent Consultant Name Role Phone Unavailable Primary Care Provider Unavailabl e Source Comments [facility],non-owned Affiliates and Associated Physician Practices is amultiple site organization consisting of ambulatory clinics and hospital sitesin [place], [place], [place] and [place]. This disclosure is being madepursuant to the Care Everywhere program and may not contain all information available regarding this patient. 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
--- OUTSIDE RECORDS SUMMARY | 2024-10-23 10:22 | XMS_ITS | Referral Summary ---
Author Organization [facility] Address [address] [place] [address] Care Team Providers Care Practicing Dermatologist Name Role Phone Jose Russell MD Primary Care Provider +1- [phone] Allergies No known active allergies Medications montelukast [...] on file Legal Sex Female 8:03 AM FAMILY MEDICINE PHYSICIAN Gender Identity Not on file Sexual Orientation Not on file Last Filed Vital Signs Vital Sign Reading Time Taken Comments Blood Pressure - - Pulse - - Temperature - - Respiratory Rate - - Oxygen Saturation - - Inhaled Oxygen Concentration - - Weight 68 kg (150 lb) 07/13/2024 8:32 AM FAMILY MEDICINE PHYSICIAN Height 170.2 cm (5' 7 ) 07/13/2024 8:32 AM FAMILY MEDICINE PHYSICIAN Body Mass Index 23.49 07/13/2024 8:32 AM FAMILY MEDICINE PHYSICIAN Plan of Treatment Not on file Procedures [...] compared to prior imaging studies performed at [facility] on 03/24/2020, 05/22/2021 and 09/17/2022. The breasts [...] compared to prior imaging studies performed at [facility] on 03/24/2020, 05/22/2021 and 09/17/2022. The breasts [...] ACCESS BLUE ACCESS [place]UE [place] [facility] Care Teams Practicing Dermatologist Relationship Specialty Start Date End Date Jose Russell MD [address] [facility] [address] [place] [address] PCP - General 10/25/16
== END 2024-10-23 10:03 | disposition home or self-care (01) ==
LOC: ANHSURGERY 10:05
PROVIDERS: PCP Internal Medicine; Visit Provider Surgery
DX: K43.0 Incisional hernia with obstruction, without gangrene (principal)
CPT/HCPCS: 36415; 86850; 86900; 86901

== ENCOUNTER 2024-10-30 01:21 | Day surgery (SDC) | payer BC, SELFPAY ==
[2024-10-22 17:30] VITALS: BMI 22.7
--- NOTE | 2024-10-22 17:57 | PC.NURSE ---
Report to the Outpatient Waiting Room, entrance under the green pavilion located off [facility], at 1100 on 10-30-24. Planned Procedure Time: 1300.? Time changes happen often and if your time is changed the preop area will call you the afternoon before. - You and your visitor will be asked to self-screen and do not enter if you have any COVID symptoms. Please call surgeon if you need to reschedule. - A mask is optional within the hospital at this time. Patients may have clear liquids (water, carbonated beverages, clear teas, apple juice) until 3 hours prior to surgery with a maximum of 20 ounces. 1000 - No food from midnight until time of surgery and no smoking, or chewing tobacco (or any form of nicotine). No chewing gum, candy or mints. - Infants may have breast milk until 4 hours before surgery, formula 6 hours prior to surgery. - Children will be allowed to drink immediately following surgery.? If applicable, please bring a bottle or sippy cup to assist with drinking. Juice, water, soda, and popsicles are readily available.? For infants on formula, please bring formula the day of surgery.? Pacifiers are allowed. Take only the following medications with a SIP of water on the morning of surgery: None DO NOT STOP ANY OF YOUR OTHER PRESCRIPTION MEDICATIONS PRIOR TO SURGERY EXCEPT THE FOLLOWING Hold all vitamins and supplements for 3 days per anesthesiologist. Medications to discontinue per physician: N/A Please no make-up, nail iraqi, hairspray, perfume, deodorant, or body powder the day of surgery.? No jewelry (including any body piercings) or valuables the day of surgery, leave them at home.? Please take a shower or bath the night before, or the morning of, surgery with an antibacterial soap.? Wear comfortable, loose fitting clothing.? Children are encouraged to wear pajamas. - Jewelry must be removed prior to entering the operating room.? Rings and piercings that are not removed may be cut off. - The hospital will not accept responsibility for valuables.? - Please leave all valuables, including medications, at home the day of surgery. If you are going home after surgery, a licensed driver messenger must drive you home.? - NO public transportation without another adult if you receive anesthesia. - We recommend that an adult stay with you for 24 hours following discharge. - We also recommend that you do not drive, make important decision, drink alcoholic beverages, or take any drugs that were not prescribed by your health care provider for at least 24 hours after your discharge time. For Pediatric surgeries, we recommend two adults accompany the child home. Follow any additional instructions given to you from your surgeon. Telephone instructions given to Ginny Monreal and asked if any additional questions and then verbalized understanding. Patient advised to call surgeon office or pre surgery nurse liaison [phone] if any additional questions.
[2024-10-30] VITALS (8 sets, daily range): BP systolic 116–156; BP diastolic 71–91; PULSE 70–128; RESP 15–19; TEMP 36.6–37.1; O2SAT 99–100
--- OUTSIDE RECORDS SUMMARY | 2024-10-30 01:23 | XMS_ITS | Clinical Summary ---
Author Organization [facility] Address [address] [place] [address] Care Team Providers Care Engineering Technical Writer Name Role Phone Unavailable Primary Care Provider Unavailabl e Source Comments [facility],non-owned Affiliates and Associated Physician Practices is amultiple site organization consisting of ambulatory clinics and hospital sitesin [place], [place], [place] and [place]. This disclosure is being madepursuant to the Care Everywhere program and may not contain all information available regarding this patient. 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
--- OUTSIDE RECORDS SUMMARY | 2024-10-30 01:23 | XMS_ITS | Referral Summary ---
Author Organization [facility] Address [address] [place] [address] Care Team Providers Care Level Glass Forming Machine Operator Name Role Phone Jose Russell MD Primary Care Provider +1- [phone] Allergies No known active allergies Medications montelukast [...] on file Legal Sex Female 8:03 AM DESPATCHING AND RECEIVING CLERK Gender Identity Not on file Sexual Orientation Not on file Last Filed Vital Signs Vital Sign Reading Time Taken Comments Blood Pressure - - Pulse - - Temperature - - Respiratory Rate - - Oxygen Saturation - - Inhaled Oxygen Concentration - - Weight 68 kg (150 lb) 07/13/2024 8:32 AM DESPATCHING AND RECEIVING CLERK Height 170.2 cm (5' 7 ) 07/13/2024 8:32 AM DESPATCHING AND RECEIVING CLERK Body Mass Index 23.49 07/13/2024 8:32 AM DESPATCHING AND RECEIVING CLERK Plan of Treatment Not on file Procedures [...] compared to prior imaging studies performed at [facility] on 03/24/2020, 05/22/2021 and 09/17/2022. The breasts [...] compared to prior imaging studies performed at [facility] on 03/24/2020, 05/22/2021 and 09/17/2022. The breasts [...] ACCESS BLUE ACCESS [place] [facility] Care Teams Level Glass Forming Machine Operator Relationship Specialty Start Date End Date Jose Russell MD [address] [facility] [address] [place] [address] PCP - General 10/25/16
--- OUTSIDE RECORDS SUMMARY | 2024-10-30 01:23 | XMS_ITS | Clinical Summary ---
Author Organization [facility] Address [address] [place] [address] Care Team Providers Care Core Cleaner Name Role Phone Jose Russell MD Primary Care Provider +1- [phone] Allergies No known active allergies Medications montelukast [...] on file Legal Sex Female 8:03 AM ARCHIVIST MILITARY HISTORY Gender Identity Not on file Sexual Orientation Not on file Obstetrics History Last Filed Vital Signs Vital Sign Reading Time Taken Comments Blood Pressure - - Pulse - - Temperature - - Respiratory Rate - - Oxygen Saturation - - Inhaled Oxygen Concentration - - Weight 68 kg (150 lb) 07/13/2024 8:32 AM ARCHIVIST MILITARY HISTORY Height 170.2 cm (5' 7 ) 07/13/2024 8:32 AM ARCHIVIST MILITARY HISTORY Body Mass Index 23.49 07/13/2024 8:32 AM ARCHIVIST MILITARY HISTORY Plan of Treatment Health Maintenance Due Date [...] to prior imaging studies performed at [facility] on 03/24/2020, 05/22/2021 and 09/17/2022. The breasts [...] to prior imaging studies performed at [facility] on 03/24/2020, 05/22/2021 and 09/17/2022. The breasts [...] Most Recently Relevant to Health Maintenance Insurance [employer] ACCESS CHOICE [employer] ACCESS [employer] [place] Care Teams Core Cleaner Relationship Specialty Start Date End Date Jose Russell MD [address] [place] [address] PCP - General 10/25/16
[2024-10-30] MEDS: KETOROLAC 15 MG/ML VIAL (*BKC) IV PUSH ×2 (11:30→14:53)
[2024-10-30] MEDS: LACTATED RINGERS 1,000 ML 30 ML IV CONT ×2 (11:30→15:14)
[2024-10-30] MEDS: ACETAMINOPHEN 500 MG TABLET 1000 MG PO (11:30)
--- NOTE | 2024-10-30 11:43 | WPDHPUPDATE1 ---
History and Physical Update Update Date/Time: 10/30/24 11:43 History and Physical has been reviewed, including an updated exam of the patient. There are NO changes in the patient's condition. Risks, benefits, and alternatives have been discussed and questions answered. Patient agrees to proceed with procedure.
--- NOTE | 2024-10-30 11:47 | P.PNAN_ITS ---
Anes - Initial Pre Proc Eval Procedure: Operation Date: 10/30/24 11:30 Proposed Procedures p Robotic Assisted Laparoscopic Incarcerated Incisional Hernia Repair with Mesh (Extended Totally Extraperitoneal) - Mukund Ceron MD Date/Time: 10/30/24 11:47 Surgeon: Mukund Ceron MD Pre Op Diagnosis: Incarcerated Incisional Hernia Patient Data Age: 49 Gender: F Height: 1.7 m Weight: 66 kg Last Vital Signs Temp 36.9 C 10/30/24 10:45 Pulse 70 10/30/24 10:45 Resp 16 10/30/24 10:45 BP 116/71 10/30/24 10:45 Pulse Ox 100 10/30/24 10:45 O2 Del Method Room Air 10/30/24 10:45 Allergies Allergy/AdvReac Type Severity Reaction Status Date / Time succinylcholine Allergy Mild COMA Verified 10/22/24 17:29 PSEUDOCHOLINESTERASE Allergy Unknown Unknown Uncoded 10/22/24 17:29 DEFICIENCY-CONFIRMED BY TESTING Home Medications ?Medication ?Instructions ?Recorded ?Confirmed ?Type fluticasone propionate 50 2 spray intranasal DAILY 11/02/19 10/22/24 History mcg/actuation nasal spray,suspension (Flonase Allergy Relief) montelukast 10 mg tablet See Rx Instructions .Route 09/21/24 10/22/24 Rx .COMPLEX #90 tabs Laboratory Tests 10/30/24 10:44 Blood Type B Positive Antibody Screen Negative Patient hx anesthesia problems: none Family hx anesthesia problems: none Results Review: All pre-operative results and documents have been reviewed as part of the pre- operative evaluation. 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 History of colposcopy (06/11/16) colpo/bx- ascus+hpv - benign History of partial hysterectomy (07/23/19) RATLH with ovarian preservation ; Menometrorrhagia, Dysmenorrhea Status post left foot surgery Family History Family History Mother Breast cancer Grandparent Breast cancer Maternal grandmother Sibling Breast cancer sister Social History Social History Smoking packs per day: 0.5 Smoking cigarettes per day: 10.0 Years smoked: 8 Smoking pack-years: 4.00 Smoking status: Former smoker Tobacco type: cigarettes Second hand tobacco smoke exposure: Yes Smoking end date: 07/01/10 Alcohol intake: current Drinks per week: 10 Alcohol use details: beer mainly Substance use: never Substance use type: does not use Do You Feel Safe in your Home?: Yes Lack of Transportation: No Lack of Food: Never True Current Housing: I Have Housing Concerned About Future Housing: No Difficulty Paying Gas/Electric Bills: No Difficulty Paying for Meds: No Currently Unemployed: No Education: Don't Know Difficulty w/ Childcare or Family Care: No Living arrangements: with family Additional living arrangements comments: Occupation/Education: 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 Gender identity (if verbalized by the patient): Female Sexual Orientation (if Verbalized by the Patient): Straight or Heterosexual Spiritual care concerns: No Anes - Eval Final PreProcedure Day of Procedure 10/30/24 11:47 Patient weight: normal Heart: regular rate and rhythm Lungs: clear to auscultation Airway: Mallampati scale class II Neurological: alert and oriented Last oral intake: >/= 8 hours ASA classification: I Emergent: no Anesthetic plan: proceed Anesthesia type and monitoring: general ETT and standard monitoring Results Review: All pre-operative results and documents have been reviewed as part of the pre- operative evaluation. Informed Consent: The patient's anesthetic plan and its attendant risks and benefits were discussed with the patient/family/POA. Questions were solicited and answers provided to the satisfaction of the patient/family/POA.
[2024-10-30] MEDS: SCOPOLAMINE 1 MG PATCH 1 PATCH TRANSDERM (11:53)
[2024-10-30] MEDS: ceFAZolin 2 GM/D5W 50 ML 2 GM/50 ML BAG IVPB (12:07)
[2024-10-30] MEDS: LIDO 1%/EPINEPHRINE 1:100,000 50 ML VIAL 30 ML INFILTRATE (13:24)
[2024-10-30] MEDS: BUPivacaine HCL 0.5% 10 ML AMP 30 ML INFILTRATE (13:25)
[2024-10-30] MEDS: fentaNYL CITRATE INJ (*CRX) 100 MCG/2 ML VIAL 25 MCG IV PUSH (15:43)
[2024-10-30] MEDS: oxyCODONE HCL (*CRX) 5 MG TAB IR PO (16:29)
--- NOTE | 2024-11-01 16:05 | P.OP_ITS ---
Procedure Note - Detailed Date of Procedure 10/30/24 Pre-op Diagnosis Incarcerated Incisional Hernia Post-op Diagnosis Other (Incarcerated ventral hernia x2) Procedure Performed Robotic assisted laparoscopic extended totally extraperitoneal (eTEP) incarcerated ventral hernia repairs x2. Myofascial release X 2. Surgeon Mukund Ceron MD Regional Sales Consultant RUDI Pelayo Anesthesia General Indications The patient is very pleasant 49-year-old female who presented with a palpable lump in the mid epigastric region of the abdomen. She also was noted to have a small umbilical hernia as well. The epigastric ventral hernia was incarcerated fatty tissue as noted on CT scan. She presents now for robotic assisted laparoscopic incarcerated ventral hernia repair via extended total extraperitoneal approach and placement of Synecor pre mesh. Findings The patient had 2 small ventral hernia defects. The epigastric hernia defect which had incarcerated omentum and preperitoneal fat in it measured 2x1cm. The umbilical hernia defect measured 1x1cm. There was 6cm of separation between the 2 hernia defects in the midline. A [id number] piece of [place] Synecor pre mesh was placed in the retrorectus space for wide overlap and repair of the hernias x2. Description of Procedure After informed consent was obtained patient was taken to the operating room she was placed supine position and general endotracheal anesthesia was administered. The abdomen was then prepped and draped usual sterile fashion after placement of Pratt catheter decompress the bladder. An orogastric tube was placed decompress the stomach. A time-out was then performed correctly identifying the patient as well as procedure to be performed. Given perioperative IV antibiotics. The patient had an incarcerated lower epigastric abdominal wall ventral hernia as well as a small umbilical hernia. A 5mm Optiview port in the left subcostal area medial to the semilunaris line. Gain access into the left retro rectus muscle space without entering into the abdomen proper. The posterior rectus sheath on the left was then dissected and release of the left rectus muscle from the posterior rectus fascia. One I had enough visualized space to place additional trocar ports I then placed 2 more 8mm robotic trocar ports into the retrorectus space. The DermApproved robot was then brought to the patient's bedside and docked and the robotic ports were docked to the robotic arms. Robotic instruments were then advanced into the operative field under direct visualization. I then sat down at the robotic console to perform the dissection robotically. The 1st myofascial release was started with the posterior rectus sheath released off the left rectus muscle. This was performed all the way to the medial edge of the rectus muscle and then I dissected from the costal margin into the space of Retzius. Care was taken to leave the inferior epigastric vessels up with the rectus muscle. The upper medial aspect of the left posterior sheath was incised and we entered into the preperitoneal space and transition to the contralateral retro muscular space. In order to continue repair and improve the medialization of the anterior rectus sheath for the purpose of reconstruction of the linea alba, the next level myofascial release had to be performed. The contralateral posterior rectus sheath was then dissected and release of the right rectus muscle was performed all the way to the right semilunaris line. Neurovascular bundles were identified and preserved. The retro muscular space on the right side was then created cranial caudal to the hernia defect. Next we turned our attention to the preperitoneal space and the incarcerated preperitoneal fat was reduced from the lower epigastric fascial defect and the umbilical hernia defect. All the contents were completely reduced and small holes in the peritoneum were closed with a running 3-0 absorbable V lock suture. The patient had a 2x1cm defect in the lower epigastric region and a 1x1cm defect in the umbilical region. These 2 defects were by a distance of approximately 6cm. The patient also had significant diastasis in addition to the midline defects. The previously mentioned myofascial release allowed for myofascial medialization for the purpose of evangelical of the linea alba. The linea alba was then restored and the edges of the muscle approximated utilizing a #1 absorbable Stratafix barbed suture. The diastasis and 2 hernia defects were closed with this continuous running suture. Following this the retro muscular space was measured and a [place] Synecor pre mesh measuring [id number] in dimensions was placed into the retrorectus space via the bedside pharmacy technician assistant trocar port site. The mesh was then laid out over the posterior rectus sheath and peritoneum. The mesh laid flat without any buckling. There was at least 6cm of overlap between edges of the mesh and the closed at defects and restored linea alba. I then removed all the trocar ports under direct visualization and the CO2 was evacuated from the retrorectus space. I then irrigated out the port sites sterile saline solution. Hemostasis was good. The 10mm left upper quadrant trocar port fascial defect was then closed at the anterior fascial level with a 0 Vicryl suture. The skin edges the port sites were then approximated lies in a running subcuticular 4 Monocryl suture. Skin glue was then applied to all the incisions. The patient tolerated the procedure well no complications. All sponges, needles, and instrument counts were correct at the end procedure. EBL was _25__cc. The patient was awakened and taken to recovery in stable and satisfactory condition. Implants Al[place]augh Synecor pre mesh [id number] placed in the retrorectus space. Estimated Blood Loss 25 Drains No Packing No Pathology None sent Complications No immediate complications Condition Stable Disposition PACU [facility] Billing Surgery - Charge Forward: Surgery Billing
== END 2024-10-30 17:15 | disposition home or self-care (01) ==
PROVIDERS: PCP Internal Medicine; Visit Provider Surgery
PROC: (CPT 49594; principal; 2024-10-30 11:30)
DX: K43.6 Other and unspecified ventral hernia with obstruction, without gangrene (principal); K42.9 Umbilical hernia without obstruction or gangrene; M62.08 Separation of muscle (nontraumatic), other site; Z87.891 Personal history of nicotine dependence
CPT/HCPCS: 49594; 15734; S2900; 36415; 86850; 86900; 86901; A9270; J0690; J1100; J1885; J2003; J2004; J2704; J3010; J7120